=== PATIENT | male | born 1995 | race Caucasian/White ===

== ENCOUNTER → 2018-04-03 21:25 | Outpatient (CLI) | payer BC, SELFPAY | PROVIDERS: Visit Provider Nurse Practitioner | DX: N39.0 Urinary tract infection, site not specified (principal) | CPT/HCPCS: 87086 ==

== ENCOUNTER 2023-03-04 18:20 | Emergency (ER) | payer BC, SELFPAY ==
[2023-03-04 18:21] VITALS: BP 151/84; PULSE 95; RESP 16; TEMP 36.6; O2SAT 98
--- NOTE | 2023-03-04 18:36 | EDS_ITS ---
HPI History of Present Illness Chief Complaint: Abscess Detail of Chief Complaint: Pain and swelling to her right ring finger Informant: patient Narrative Narrative: Patient presents with pain and swelling to right ring finger times about 5 or 6 days. Patient states that 1 week ago he was working on his brakes and got a metal sliver into his finger that he was able to pick out. Patient was seen at urgent care 2 days ago and started on doxycycline. He continues to have increased pain and swelling and presents for evaluation. Patient is left-hand dominant. Unsure of his last tetanus. [facility] Medical History (Updated 03/12/23 @ 00:10 by Ebonie Zhang) Cellulitis Infected sebaceous cyst Pain in the groin Home Medications doxycycline monohydrate 100 mg capsule 100 mg PO Q12H 03/04/23 [History Last Taken Unknown] Allergy/AdvReac Type Severity Reaction Status Date / Time cefprozil [From Cefzil] Allergy Intermediate Hives Verified 03/04/23 18:21 Family History Other Alzheimer's dementia Heart disease Hypertension Surgical History History of left inguinal hernia Social History (Updated 04/10/18 @ 11:30 by Steph Harkins NP, [employer]) Smoking Status: Current every day smoker tobacco type: cigarettes ROS ROS ED Review of Systems ROS Unobtainable: other Constitutional Constitutional ED: Reports lethargy; Denies chills, fever(s), sweats or weight loss Eyes Eyes: Denies blurry vision, change in vision or diplopia ENT ENT ED: Denies rhinorrhea or sore throat Cardiovascular Cardiovascular: Denies chest pain, orthopnea or racing heartbeat Respiratory/Chest Respiratory/Chest: Denies cough, dyspnea, dyspnea on exertion, orthopnea or sputum Gastrointestinal Gastrointestinal: Denies abdominal pain, diarrhea, nausea or vomiting Genitourinary Genitourinary ED: Denies dysuria, hematuria or urinary frequency Musculoskeletal Musculoskeletal: Reports other Details: Pain and swelling of right ring finger ; Denies arthralgias, back pain, myalgias or neck pain Integumentary Denies abscess, Abrasions or rash Neurologic Neurologic: Denies headache(s) or weakness Psychiatric Psychiatric: Denies anxiety, depression or suicidal thoughts Endocrine Endocrinology: Denies polydipsia, polyphagia or polyuria Hematologic/Lymphatic Hematologic/Lymphatic: Denies easy bleeding, easy bruising or lymphadenopathy Allergic/Immunologic Allergic/Immunologic ED: Denies mouth swelling, tongue swelling or urticaria EXAM Physical Exam Const Vital Signs: 03/04/23 18:21 03/04/23 18:48 Temperature 97.8 F 97.9 F Temperature Source Temporal Temporal Pulse Rate 95 95 Respiratory Rate 16 18 Blood Pressure 151/84 H 151/84 H Blood Pressure Mean 106 106 Pulse Ox 98 100 Oxygen Delivery Method Room Air Positive well nourished and well developed General Appearance ED: well developed and NAD HEENT Reports TM's clear and moist mucous membranes normocephalic and atraumatic; Negative for trauma or tenderness Tympanic Membrane ED: Yes TM's clear Eyes PERRL and EOMs intact bilaterally General Eye ED: Negative for pale conjunctiva or scleral icterus Neck no lymphadenopathy, supple and no JVD General: Negative for tenderness Chest Wall inspection of chest normal and palpation of chest normal Chest: Negative for tenderness Resp normal respiratory effort and clear to auscultation bilaterally Effort and Inspection: Negative for respiratory distress or pain with movement Auscultation: Negative for rhonchi, wheezes or diminished lung sounds Cardio regular rate, regular rhythm, S1 normal heart sound, S2 normal heart sound and no murmurs Peripheral Pulses: pulses 2+ throughout GI normal to inspection, nondistended, normoactive bowel sounds, soft to palpation, non-tender, non-distended and no masses Back/Spine no CVA tenderness and no thoracic nor lumbar tenderness Extremity normal to inspection Extremity Narrative: Right continue-patient is diffusely swollen erythematous sausage shaped digit. Patient has limited ability to flex secondary to pain and swelling. Neurovascular intact otherwise. General Extremety ED: Negative for edema General Extremity: Negative for edema Neuro oriented x3, CN's II-XII intact bilaterally, no sensory deficits noted and gait normal Sensorium / Orientation: awake, alert, oriented to person, oriented to place and oriented to time Motor Exam: strength 5/5 throughout and strength abnormal Psych mental status grossly normal Skin no rashes or lesions noted and no wounds MDM MDM MDM Narrative Medical decision making narrative: Clinically I suspect patient has a flexor tenosynovitis. IV line was established. CBC with differential obtained showed an elevated white count of 14.6. Chemistries unremarkable. X-ray of the right ring finger showed no foreign bodies on my interpretation. Patient was started on clindamycin 900 mg IV. I discussed case with Dr. Bermudez from [facility] and he accepted transfer of patient to [facility]. I discussed case with [facility] transfer line and spoke with the emergency room physician there who accepted transfer of patient as well. I feel patient can drive himself or his can drive him. Lab Data Attestation: I reviewed the patient's lab results. Labs: Laboratory Results - last 24 hr 03/04/23 18:40 WBC 14.6 H RBC 5.01 Hgb 15.6 Hct 45.4 MCV 90.6 MCH 31.1 MCHC 34.4 RDW Std Deviation 43.1 RDW Coeff of [place] 13.0 Plt Count 131 L MPV 11.8 Immature Gran % (Auto) 0.400 Neut % (Auto) 72.1 H Lymph % (Auto) 17.8 L [place] % (Auto) 7.4 Eos % (Auto) 1.8 Baso % (Auto) 0.5 Absolute Neuts (auto) 10.5 H Absolute Lymphs (auto) 2.59 Nucleated RBC % 0 Sodium 140 Potassium 3.5 Chloride 108 H Carbon Dioxide 30.0 Anion Gap 2 L BUN 12 Creatinine 0.96 Estim Creat Clear Calc 120.19 Est GFR (MDRD) Af Amer 119 Est GFR (MDRD) Non-Af 98 BUN/Creatinine Ratio 12.5 Glucose 107 H Calcium 9.1 Radiography Diagnostic Testing: Clinical Impression(s) from Imaging Studies Finger X-Ray 03/04/23 18:50 IMPRESSION: No acute fracture or dislocation. Diffuse soft tissue swelling. Electronically Signed: Rudolph Chua MD at 19:23 EDT , 2 view x-rays of the right ring finger obtained interpreted by myself as no evidence of foreign body or fracture. There was soft tissue swelling. Radiology in agreement. Discharge Plan Triage Chief Complaint: Abscess ED Provider: Aaron Rangel Dx/Rx/DC Orders Clinical Impression: Flexor tenosynovitis of finger Prescriptions: No Action doxycycline monohydrate 100 mg capsule 100 mg PO Q12H Primary Care Provider: Steph Harkins [employer] Referrals: NOT,DEFINED [Non-Staff] - Disposition Disposition: DC/Tx to Another Type of HCF Discharge Location: [facility] Discharge Date/Time: 03/04/23 20:37
[2023-03-04 18:48] VITALS: BP 151/84; PULSE 95; RESP 18; TEMP 36.6; O2SAT 100
[2023-03-04 18:49] LABS: Absolute Lymphocyte Count 2.59 X10^3/uL (0.83-4.51); Absolute Neutrophil Count 10.5 X10^3/uL (2.0-7.7); Basophil# 0.07 X10^3/uL; Basophil% 0.5 % (0-1); Eosinophil# 0.26 X10^3/uL; Eosinophils% 1.8 % (0-5); Hematocrit 45.4 % (40-54); Hemoglobin 15.6 g/dL (13.0-16.5); Lymphocyte # 2.59 X10^3/ul (0.83-4.51); Lymphocyte % 17.8 % (19-41); Mean Corp Hgb Conc 34.4 g/dL (32-36); Mean Corpuscular Hgb 31.1 pg (27.0-32.0); Mean Corpuscular Volume 90.6 fL (80-94); Mean Platelet Vol. 11.8 fl (6.2-12.0); Monocyte# 1.08 X10^3/uL; Monocyte% 7.4 % (0-10); NRBC Flagged by Analyzer 0 % (0-5); Neutrophil % 72.1 % (47-70); Platelet Count 131 K/mm3 (150-450); RBC Distribution Width SD 43.1 fl (35.1-43.9); Red Blood Count 5.01 M/mm3 (4.6-6.2); White Blood Count 14.6 K/mm3 (4.4-11.0)
--- NOTE | 2023-03-04 18:50 | RAD_ITS ---
STUDY: X-RAY - RIGHT HAND, ATTENTION FOR FINGER REASON FOR EXAM: Male, 27 years old. pain, swelling TECHNIQUE: 3 view(s) of the finger were obtained. COMPARISON: None. FINDINGS: Normal metacarpal head. Normal metacarpophalangeal joint. Normal proximal phalanx. Normal middle phalanx. Normal distal phalanx. Normal proximal interphalangeal joint. Normal distal interphalangeal joint. Diffuse soft tissue swelling. RAD/Finger(s) Min 2 Views IMPRESSION: No acute fracture or dislocation. Diffuse soft tissue swelling. Electronically Signed: Rudolph Chua MD at 19:23 EDT ,
[2023-03-04 19:06] LABS: Anion Gap 2 (5-15); BUN 12 mg/dL (7-18); BUN/Creat Ratio 12.5 RATIO (10-20); Calcium,Total 9.1 mg/dL (8.5-10.1); Chloride 108 mmol/L (98-107); Creatinine, Serum 0.96 mg/dL (0.70-1.30); EST Glomerular Filtration Rate 98 mL/min (>60); Est Glom Filt Rate - Afr Amer 119 mL/min (>60); Estimated Creatinine Clearance 120.19 ml/min; Glucose 107 mg/dL (74-106); Potassium 3.5 mmol/L (3.5-5.1); Sodium Level 140 mmol/L (136-145)
[2023-03-04] MEDS: Clindamycin 900 MG/50 ML BAG 75 MG IV (19:54)
[2023-03-04 19:58] VITALS: BP 139/83; PULSE 64; RESP 18; TEMP 36.6; O2SAT 100
--- NOTE | 2023-03-04 20:11 | ED.RN ---
report called to [facility] ER spoke with nurse Ordonez.
== END 2023-03-04 20:37 | disposition other institution (70) ==
PROVIDERS: Emergency Provider Emergency Medicine; PCP Nurse Practitioner; Visit Provider Emergency Medicine
DX: M65.841 Other synovitis and tenosynovitis, right hand (principal); F17.210 Nicotine dependence, cigarettes, uncomplicated
CPT/HCPCS: 73140; 80048; 85025; 96365; 99284; A4216